=== PATIENT | female | born 2000 | race Caucasian/White ===

== ENCOUNTER 2021-06-25 15:01 | Outpatient (CLI) | payer BC | END 2021-06-25 15:02 | disposition home or self-care (01) | LOC: CTENTCT 15:01 | PROVIDERS: ATTEND Otolaryngology Plastic Surgery within the Head & Neck | DX: J32.9 Chronic sinusitis, unspecified (principal) | CPT/HCPCS: 70486 ==

== ENCOUNTER 2021-08-28 08:19 | Day surgery (SDC) | payer BC ==
[2021-08-21 11:00] VITALS: BMI 22.7
[2021-08-28] MEDS ORDERED: Fentanyl 250 MCG/5 ML VIAL ONE (08:38)
[2021-08-28] MEDS ORDERED: AFRIN NASAL MIST 15 ML BOT ONE (09:16)
[2021-08-28] MEDS ORDERED: Oxymetazoline HCl 0.05% (30 ML BOT) ONE (09:25)
[2021-08-28] MEDS ORDERED: Ferric Subsulfate (ASTRINGYN) 8 GM VIAL ONE (09:25)
[2021-08-28] MEDS ORDERED: Xylocaine 1% w/ Epi 1:100K 10 ML VIAL ONE (09:25)
[2021-08-28] MEDS ORDERED: Acetaminophen 500 MG TAB ONE (09:29)
[2021-08-28] MEDS ORDERED: Dexamethasone 20 MG/5 ML VIAL ONE (09:30)
[2021-08-28] MEDS ORDERED: Rocuronium Bromide 10 MG/ML (10ML VIAL) ONE (09:30)
[2021-08-28] MEDS ORDERED: Lidocaine 1% PF 5 ML VIAL ONE (09:30)
[2021-08-28] MEDS ORDERED: Glycopyrrolate 0.2 MG/ML 5 ML SYRINGE ONE (09:30)
[2021-08-28] MEDS ORDERED: Ondansetron PF 4 MG/2 ML Vial ONE (09:30)
[2021-08-28] MEDS ORDERED: PROPOFOL 200 MG/20 ML VIAL ONE (09:30)
[2021-08-28] MEDS ORDERED: methylPREDNISolone Acetate 40 mg/ml Vial ONE (10:10)
== END 2021-08-28 12:50 | disposition home or self-care (01) ==
LOC: SDC 08:19
PROVIDERS: ATTEND Otolaryngology Plastic Surgery within the Head & Neck
PROC: 09BL8ZZ Excision of Nasal Turbinate, Via Natural or Artificial Opening Endoscopic (ICD-10-PCS; principal; 2021-08-28)
PROC: 09DU4ZZ Extraction of Right Ethmoid Sinus, Percutaneous Endoscopic Approach (ICD-10-PCS; principal; 2021-08-28)
PROC: 09DV4ZZ Extraction of Left Ethmoid Sinus, Percutaneous Endoscopic Approach (ICD-10-PCS; principal; 2021-08-28)
PROC: 09BT8ZZ Excision of Left Frontal Sinus, Via Natural or Artificial Opening Endoscopic (ICD-10-PCS; principal; 2021-08-28)
PROC: 09BS8ZZ Excision of Right Frontal Sinus, Via Natural or Artificial Opening Endoscopic (ICD-10-PCS; principal; 2021-08-28)
PROC: 099R8ZZ Drainage of Left Maxillary Sinus, Via Natural or Artificial Opening Endoscopic (ICD-10-PCS; principal; 2021-08-28)
PROC: 0CTPXZZ Resection of Tonsils, External Approach (ICD-10-PCS; principal; 2021-08-28)
PROC: 0CTQXZZ Resection of Adenoids, External Approach (ICD-10-PCS; principal; 2021-08-28)
PROC: 099Q8ZZ Drainage of Right Maxillary Sinus, Via Natural or Artificial Opening Endoscopic (ICD-10-PCS; principal; 2021-08-28)
DX: J35.03 Chronic tonsillitis and adenoiditis (principal); J32.4 Chronic pansinusitis; J34.2 Deviated nasal septum; J34.3 Hypertrophy of nasal turbinates; J34.89 Other specified disorders of nose and nasal sinuses
CPT/HCPCS: 88304; J1100; J2405; J2704; J2920; J3010